=== PATIENT | female | born 1945 | race Caucasian/White ===

== ENCOUNTER 2017-01-31 06:48 | Day surgery (SDC) | payer OTHER ==
[2017-01-31] MEDS ORDERED: LIDOCAINE 1% 20 ML MDV ID ONE (07:08)
[2017-01-31] MEDS ORDERED: VERSED ONE (08:27)
[2017-01-31] MEDS ORDERED: DIPRIVAN 20 ML VIAL IVP ONE (08:27)
[2017-01-31 10:09] VITALS: BP 128/76; TEMP 97.5
--- NOTE | 2017-02-01 09:29 | OP ---
INDICATIONS FOR PROCEDURE: 71 year old female presents for a screening colon exam with a family history of colon cancer involving her mother. MEDICATIONS: SEE ANESTHESIA NOTES. PROCEDURE: COLONOSCOPY SNARE POLYPECTOMY. REPORT: The risks, benefits, alternatives and limitations were discussed in detail with the patient. Informed consent was obtained. After adequate sedation was achieved, a digital rectal exam revealed good tone, no masses. The colonoscope was introduced into the rectum and advanced under direct visual guidance to the cecum. The cecum was identified by the appendiceal orifice and IC valve. I then slowly withdrew the scope in the circumferential manner and examined the mucosa quite carefully. I looked on the proximal distal sides of folds and flexures as best as possible. She had moderate melanosis coli throughout the entire length of the colon. In the ascending colon and cecum there was a total of 6 polyps. These pink lesions stood out on the brown background of the melanosis. They range in size from 4- 7mm all 6 were removed by snare technique. In the transverse colon there was a 4 -5mm sessile polyp that I destroyed using a snare. No other abnormalities were noted other than diverticulosis scattered throughout the sigmoid colon. The scope was retroflexed and looked at the anal canal which was unremarkable. The prep was good and the withdraw time was 15 minutes and 49 seconds. The patient tolerated the procedure well with stable vital signs and pulse oximetry throughout. IMPRESSION: 1. 7 small polyps removed or destroyed as above 2. Diverticulosis 3. Melanosis coli RECOMMENDATIONS: 1. High fiber diet 2. Office visit as needed 3. Await poly pathology. If the path is unremarkable as expected I recommend repeat colonoscopy examination again in three years or sooner if there are signs or symptoms that indicate otherwise. CC: Dr. Corwin LUNA
== END 2017-01-31 10:00 | disposition home or self-care (01) ==
LOC: SURG 06:48
PROVIDERS: ATTEND Internal Medicine Gastroenterology
DX: Z12.11 Encounter for screening for malignant neoplasm of colon (principal); D12.2 Benign neoplasm of ascending colon; D12.0 Benign neoplasm of cecum; K63.5 Polyp of colon; K63.89 Other specified diseases of intestine; K57.30 Diverticulosis of large intestine without perforation or abscess without bleeding; Z80.0 Family history of malignant neoplasm of digestive organs